=== PATIENT | female | born 1995 | race Caucasian/White ===

== ENCOUNTER 2016-11-05 12:18 | Emergency (ER) | payer SELFPAY ==
[~2016-11-05] VITALS: Wt 54.4 kg
[~2016-11-05 12:18] MED LIST: AMOXICILLIN500 M3 PO; FLONASE 0.05% 121 EA NAS; IBU800 MG PO; MACRODANTIN100 M1 PO; NKHM PO; PHENERGAN W/ DE30 ML PO; PREDNICOT10 MG PO; TYLENOL WITH CO1 TA1 PO; VYVANSE40 MG; ZOFRAN ODT4 MG SL
[2016-11-05 12:32] VITALS: BP 105/57
[2016-11-05 12:56] LABS: BILIRUBIN NEGATIVE (NEGATIVE); BLOOD NEGATIVE (NEGATIVE); CLARITY CLOUDY (CLEAR); COLOR YELLOW (YELLOW); GLUCOSE NEGATIVE (NEGATIVE); KETONE NEGATIVE (NEGATIVE); LEUKO ESTERASE NEGATIVE (NEGATIVE); NITRITE NEGATIVE (NEGATIVE); PROTEIN 1+ (NEGATIVE); UROBILINOGEN 0.2 E.U./dl (0.2-1.0)
[2016-11-05 13:21] LABS: BACTERIA 1+; EPITHELIAL CELLS 25-30; URINE REFLEX COMMENT NO (NO); WBC 0-2 wbc/hpf (0-5)
== END 2016-11-05 14:13 | disposition home or self-care (01) ==
LOC: ED 12:18
PROVIDERS: Emergency Medicine
DX: O26.891 Other specified pregnancy related conditions, first trimester (principal); F17.200 Nicotine dependence, unspecified, uncomplicated; Z3A.14 14 weeks gestation of pregnancy

== ENCOUNTER 2017-02-13 23:10 | Emergency (ER) | payer OTHER ==
[~2017-02-13] VITALS: Ht 160 cm; Wt 51.3 kg
[2017-02-13] MEDS ORDERED: PRENATAL TABLE1 EAC1 PO (23:21)
[2017-02-13] MEDS ORDERED: CLARITIN10 MG PO (23:22)
[2017-02-13] MEDS ORDERED: IRON325 M2 PO (23:22)
[2017-02-13 23:23] VITALS: BP 112/53
[2017-02-14] MEDS ORDERED: AMOXICILLIN500 M2 PO (00:22)
== END 2017-02-14 00:29 | disposition home or self-care (01) ==
LOC: ED 23:10
DX: O99.512 Diseases of the respiratory system complicating pregnancy, second trimester (principal); J40 Bronchitis, not specified as acute or chronic; F17.200 Nicotine dependence, unspecified, uncomplicated; Z3A.21 21 weeks gestation of pregnancy

== ENCOUNTER 2017-03-05 20:00 | Emergency (ER) | payer OTHER ==
[~2017-03-05] VITALS: Ht 160 cm; Wt 52.2 kg
[~2017-03-05 20:00] MED LIST changes: +AMOXICILLIN500 M2 PO; +CLARITIN10 MG PO; +IRON325 M2 PO; +PRENATAL TABLE1 EAC1 PO
[2017-03-05 20:07] VITALS: BP 100/58
[2017-03-05 20:46] LABS: BILIRUBIN NEGATIVE (NEGATIVE); BLOOD NEGATIVE (NEGATIVE); CLARITY CLEAR (CLEAR); COLOR YELLOW (YELLOW); GLUCOSE NEGATIVE (NEGATIVE); KETONE TRACE (NEGATIVE); LEUKO ESTERASE NEGATIVE (NEGATIVE); NITRITE NEGATIVE (NEGATIVE); PROTEIN TRACE (NEGATIVE)
[2017-03-05 21:02] LABS: BACTERIA 1+; EPITHELIAL CELLS 35-40; MUCOUS TRACE; RBC 0-2 rbc/hpf (0-2); URINE REFLEX COMMENT NO (NO); WBC 0-2 wbc/hpf (0-5)
== END 2017-03-05 21:33 | disposition home or self-care (01) ==
LOC: ED 20:00
PROVIDERS: Nurse Practitioner Family
DX: Z34.92 Encounter for supervision of normal pregnancy, unspecified, second trimester (principal); F17.200 Nicotine dependence, unspecified, uncomplicated; Z3A.24 24 weeks gestation of pregnancy

== ENCOUNTER 2019-04-16 14:14 | Emergency (ER) | payer MEDICARE ==
[~2019-04-16] VITALS: Ht 160 cm; Wt 51.3 kg
[~2019-04-16 14:14] MED LIST changes: +CEPHALEXIN500 M1 PO
[2019-04-16 14:17] VITALS: BP 111/66
== END 2019-04-16 14:45 | disposition home or self-care (01) ==
LOC: ED 14:14
DX: O26.891 Other specified pregnancy related conditions, first trimester (principal); M25.561 Pain in right knee; Z3A.12 12 weeks gestation of pregnancy

== ENCOUNTER → 2019-04-23 | Outpatient (CLI) | payer MEDICARE | END | disposition home or self-care (01) | LOC: US 10:00 | DX: Z34.01 Encounter for supervision of normal first pregnancy, first trimester (principal); Z3A.11 11 weeks gestation of pregnancy ==

== ENCOUNTER → 2019-09-15 | Outpatient (CLI) | payer MEDICARE | END | disposition home or self-care (01) | LOC: US 08-24 06:30 | DX: Z34.83 Encounter for supervision of other normal pregnancy, third trimester (principal); Z3A.31 31 weeks gestation of pregnancy ==

== ENCOUNTER → 2019-10-15 | Outpatient (CLI) | payer MEDICARE | END | disposition home or self-care (01) | LOC: US 14:20 | DX: Z34.83 Encounter for supervision of other normal pregnancy, third trimester (principal); Z3A.35 35 weeks gestation of pregnancy ==

== ENCOUNTER 2019-11-03 11:04 | Emergency (ER) | payer MEDICARE ==
[~2019-11-03] VITALS: Ht 160 cm; Wt 61.7 kg
[2019-11-03 11:04] VITALS: BP 111/64
== END 2019-11-03 12:43 | disposition home or self-care (01) ==
LOC: ED 11:04
DX: O26.893 Other specified pregnancy related conditions, third trimester (principal); R10.2 Pelvic and perineal pain; O99.343 Other mental disorders complicating pregnancy, third trimester; F41.0 Panic disorder [episodic paroxysmal anxiety]; Z3A.38 38 weeks gestation of pregnancy

== ENCOUNTER 2025-03-14 15:46 | Emergency (ER) | payer MEDICARE, OTHER ==
[~2025-03-14] VITALS: Ht 162.5 cm; Wt 60.3 kg
[2025-03-14 16:13] VITALS: BP 109/74
[2025-03-14] MEDS ORDERED: IBUPROFEN 600 MG TAB PO ONE (19:00)
[2025-03-14] MEDS ORDERED: CEPHALEXIN 500 MG CAP PO ONE (19:00)
[2025-03-14] MEDS ORDERED: CEPHALEXIN500 M1 PO (19:05)
== END 2025-03-14 19:09 | disposition home or self-care (01) ==
LOC: ED 15:46
DX: S86.912A Strain of unspecified muscle(s) and tendon(s) at lower leg level, left leg, initial encounter (principal); L03.116 Cellulitis of left lower limb; R60.0 Localized edema; Z98.890 Other specified postprocedural states; X58.XXXA Exposure to other specified factors, initial encounter; Y93.89 Activity, other specified; Y92.89 Other specified places as the place of occurrence of the external cause; Y99.8 Other external cause status